=== PATIENT | male | born 1995 | race Hispanic/Latino ===

== ENCOUNTER 2019-02-14 14:22 | Emergency (ER) | payer BC, SELFPAY ==
[2019-02-14] MEDS ORDERED: Acetaminophen 325 MG TAB ONE (16:25)
--- NOTE | 2019-02-14 16:39 | CT ---
Exam: CT cervical spine without contrast HISTORY: Trauma. Pain. Neck pain. COMPARISON: None FINDINGS: No craniocervical dissociation. Appropriate alignment of the lateral masses of C1 and C2. Intact odon toid process Appropriate alignment of the facets. Straightening of normal cervical lordosis may be due to patient position, muscle spasm or cervical co llar. Soft tissue neck structures: No mass, lymphadenopathy or hematoma. No prevertebral soft tissue swelli ng. Upper mediastinum and lung apices: Unremarkable Central spinal canal: Neural foramina and central spinal canal are patent. Evaluation is limited by t echnique Vertebral bodies: Cervical spine vertebral body height is maintained. No fracture. IMPRESSION: 1. No evidence of fracture. 2. Straightening of normal cervical lordosis as detailed above. MRI if there is concern for ligamento us injury.
== END 2019-02-14 17:17 | disposition home or self-care (01) ==
LOC: ERS 14:22
DX: S16.1XXA Strain of muscle, fascia and tendon at neck level, initial encounter (principal); V69.9XXA Occupant (driver) (passenger) of heavy transport vehicle injured in unspecified traffic accident, initial encounter
CPT/HCPCS: 72125